=== PATIENT | female | born 1980 | race Two or more races ===

== ENCOUNTER 2023-08-07 13:59 | Emergency (ER) | payer OTHER ==
[~2023-08-07] VITALS: Ht 162.6 cm; Wt 55.8 kg
[2023-08-07 15:04] VITALS: BP 123/81; TEMP 98.6; O2SAT 99
[2023-08-07] MEDS ORDERED: ACYCLOVIR 200 MG CAPSULE ONE (16:19)
[2023-08-07] MEDS: ACYCLOVIR 200 MG CAPSULE PO ONE (16:24)
== END 2023-08-07 16:28 ==
LOC: ER 14:07
DX: R21 Rash and other nonspecific skin eruption (principal)